=== PATIENT | female | born 1975 | race Caucasian/White ===

== ENCOUNTER 2020-09-16 09:55 | Outpatient (CLI) | payer OTHER | END 2020-09-16 23:59 | disposition home or self-care (01) | LOC: CFH 09:55 → EDSTATUS 10:15 → CFH 23:59 → EDSTATUS 09-24 11:00 | PROVIDERS: ATTEND Specialist | DX: Z12.31 Encounter for screening mammogram for malignant neoplasm of breast (principal) | CPT/HCPCS: 77063; 77067 ==